=== PATIENT | female | born 1975 | race African-American/Black ===

== ENCOUNTER 2016-10-01 18:59 | Inpatient (IN) | payer OTHER ==
[~2016-10-01] VITALS: Ht 185.4 cm; Wt 109.3 kg
[2016-10-01 19:17] VITALS: BP 181/104
--- NOTE | 2016-10-01 19:55 | NUR ---
PT TAKEN TO BED 1
--- NOTE | 2016-10-01 20:00 | NUR ---
40 Y/O F HERE W/C/O SWELLING TO BILATERAL FEET X 5 DAYS AGO. DENIES ANY CHEST PAIN AT THE MOMENT. ER MD AWARED OF ELEVATED BLOOD PRESSURE. PT STATES HAS A HX OF HTN FOR WHICH SHE TAKES MEDICATION. 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 ER MD AT BEDSIDE.
--- NOTE | 2016-10-01 20:00 | NUR ---
Dr. Osuna evaluating patient at bedside.
[2016-10-01] MEDS ORDERED: ENALAPRILAT 2.5 MG/2 ML VIAL IVP ONE (20:15)
[2016-10-01] MEDS ORDERED: MORPHINE SULFATE 4 MG/ML SYR IVP ONE (20:55)
[2016-10-01] MEDS ORDERED: hydrALAZINE 20 MG/ML VIAL IVP ONE (21:35)
[2016-10-01] MEDS ORDERED: cefTRIAXone 2,000 MG in DEXTROSE 5% 100 ML IV ONE (22:00)
[2016-10-01] MEDS ORDERED: cefTRIAXone 1,000 MG VIAL ONE (22:14)
--- NOTE | 2016-10-01 22:47 | NUR ---
PT RESTING, DENIES ANY DISTRESS. VSS, WILL CONT TO MONITOR.
--- NOTE | 2016-10-01 23:47 | NUR ---
Patient will be admitted to care of . Admited to TELEMETRY. Will go to room 119 B. Belongings list completed. Report to MIRA SHAH.
[2016-10-01] MEDS ORDERED: CATAPRES T0.3 MG/24 TD (23:58)
[2016-10-01] MEDS ORDERED: TRANDATE200 M1 PO (23:58)
[2016-10-01] MEDS ORDERED: PROCARDIA XL90 MG PO (23:58)
--- NOTE | 2016-10-02 00:05 | NUR ---
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 ACCOMPANIED BY KIRSTIE RN, AND NANCY, EMT.
--- NOTE | 2016-10-02 00:20 | NUR ---
ADMITTED THIS 40 YEAR OLD FEMALE FROM ER PER [facility] WITH CC OF SWOLLEN FEET X2 DAYS WITH DX OF UNCONTROLLED HTN, AMBULATED TO BED WITH STEADY GAIT, ASSESSMENT DONE, EDEMA TO LOWER EXT +2, VITAL SIGNS TAKEN, BP SLIGHTLY ELEVATED BUT STABLE, DENIES CHEST PAIN, ORIENTED TO ROOM AND CALL LIGHT, SAFETY MEASURES IN PLACE, CALL LIGHT WITHIN REACH.
[2016-10-02 00:30] VITALS: BP 143/83
[2016-10-02] MEDS ORDERED: ONDANSETRON 4 MG/2 ML VIAL IVP PRN (00:45)
[2016-10-02] MEDS ORDERED: HYDROcodone/APAP 5/325 MG 1 TAB TAB PO PRN (00:45)
[2016-10-02] MEDS ORDERED: ACETAMINOPHEN 325 MG TAB PO PRN (00:45)
[2016-10-02] MEDS ORDERED: MORPHINE SULFATE 4 MG/ML SYR IVP PRN (00:45)
[2016-10-02] MEDS ORDERED: hydrALAZINE 20 MG/ML VIAL IVP PRN (00:45)
--- NOTE | 2016-10-02 01:20 | NUR ---
PT COMPLAINING OF RT LEG/CALF INTERMITTENT CRAMPING, PAGED DR HERRERA AND SAID JUST GIVE MORPHINE, PT MADE AWARE, VERBALIZED UNDERSTANDING, MEDICATED PRN WITH MORPHINE, ALL NEEDS ATTENDED.
--- NOTE | 2016-10-02 02:30 | NUR ---
ROUNDED ON PT, SLEEPING, NO SIGNS OF DISTRESS, MONITORED CLOSELY.
[2016-10-02 04:00] VITALS: BP 121/68
--- NOTE | 2016-10-02 04:00 | NUR ---
PT SLEEPING, EASILY AROUSABLE, VITAL SIGNS STABLE, DENIES ANY PAIN, MONITORED CLOSELY.
--- NOTE | 2016-10-02 05:44 | NUR ---
ROUNDED ON PT, AWAKE USING HER CELLPHONE, DENIES ANY PAIN, WARM BLANKET PROVIDED PER REQUEST, MONITORED CLOSELY.
--- NOTE | 2016-10-02 07:30 | NUR ---
PT SLEEPING, NO SIGNS OF DISTRESS, REPORT GIVEN TO MIRA CRAFT FOR CONTINUITY OF CARE.
--- NOTE | 2016-10-02 07:31 | NUR ---
RECEIVED REPORT FROM POLICY OFFICER NURSE. PT IS AAOX4, PT DENIES PAIN/DISCOMFORT AT THIS TIME. IV IS PATENT AND INTACT. SKIN IS DRY AND INTACT. PT IS ON ROOM AIR, VITALS STABLE. CALL LIGHT WITHIN REACH. WILL CONTINUE TO MONITOR.
[2016-10-02 08:00] VITALS: BP 130/77
[2016-10-02] MEDS: ENOXAPARIN 30 MG/0.3 ML SYR SUBQ SCH ×2 (08:32→09:00)
--- NOTE | 2016-10-02 08:35 | NUR ---
PT TIFFANY MEDS WELL, REFUSED LOVENOX. DISCUSSED PROS AND CONS.
[2016-10-02] MEDS ORDERED: NIFEdipine 90 MG TABER PO SCH (09:00)
[2016-10-02] MEDS ORDERED: LABETALOL 200 MG TAB PO SCH (09:00)
--- NOTE | 2016-10-02 09:15 | NUR ---
PATIENT HAS BEEN SCREENED AND CATEGORIZED MODERATE NUTRITION RISK. PATIENT WILL BE SEEN WITHIN 3-5 DAYS OF ADMISSION. 10/04/16-10/06/[address]
--- NOTE | 2016-10-02 10:02 | NUR ---
ORDERS RECEIVED, PER DR. MARTÍNEZ.
--- NOTE | 2016-10-02 10:29 | NUR ---
ENDORSED TO MIRA MARKS IN STABLE CONDITION.
--- NOTE | 2016-10-02 10:30 | NUR ---
RECEIVED PT AWAKE LYING ON BED TALKING ON HER PHONE, AAOX4 NO S/S OF DISTRESS, WITH IV ACCESS ON LEFT AC 22G ON SALINE LOCK PATENT AND INTACT. SKIN IS INTACT. DISCUSSED PLAN OF CARE, PT VERBALIZED UNDERSTANDING. CALL LIGHT WITHIN REACH, WILL CONTINUE TO MONITOR.
[2016-10-02 12:00] VITALS: BP 148/89
--- NOTE | 2016-10-02 12:30 | NUR ---
LUNCH SERVED, PT HAS FAIR APPETITE ALL NEEDS MET, WILL CONTINUE TO MONITOR.
--- NOTE | 2016-10-02 13:16 | NUR ---
CM NOTE INITIAL REVIEW SENT TO [facility] FAX# [phone] PH# [phone] [phone]
--- NOTE | 2016-10-02 14:51 | NUR ---
PT AWAKE WATCHING TV. ALL NEEDS MET AT THIS TIME. CALL LIGHT WITHIN REACH, WILL CONTINUE TO MONITOR.
--- NOTE | 2016-10-02 15:31 | NUR ---
DISCHARGE PRESCRIPTIONS AND INSTRUCTIONS GIVEN, PT VERBALIZED UNDERSTANDING. ID WRISTBAND, TELE AND IV ACCESS REMOVED, CATHETER TIP INTACT. PT LEFT UNIT AMBULATING IN STABLE CONDITION
[2016-10-04] MEDS ORDERED: cloNIDine-TTS3 0.3 MG/24 HR 1 EA PATCH TD SCH (09:00)
== END 2016-10-02 15:31 | disposition home or self-care (01) | DRG 199 ==
LOC: MED 18:59 → MTU 23:39
PROVIDERS: ADMIT Hospitalist; ATTEND Hospitalist
DX: I10 Essential (primary) hypertension (principal); N39.0 Urinary tract infection, site not specified; D30.02 Benign neoplasm of left kidney; N85.8 Other specified noninflammatory disorders of uterus; E88.09 Other disorders of plasma-protein metabolism, not elsewhere classified; Z82.49 Family history of ischemic heart disease and other diseases of the circulatory system; Z98.890 Other specified postprocedural states; Z88.0 Allergy status to penicillin; Z86.018 Personal history of other benign neoplasm; Z87.59 Personal history of other complications of pregnancy, childbirth and the puerperium

== ENCOUNTER 2023-05-13 14:57 | Emergency (ER) | payer OTHER ==
[~2023-05-13] VITALS: Ht 185.4 cm; Wt 124.3 kg
[~2023-05-13 14:57] MED LIST: NIFE90TE3 PO; TRA200 PO; TTS3 TD
[2023-05-13 15:07] VITALS: BP 175/113; PULSE 73; RESP 18; TEMP 98.3; O2SAT 99
[2023-05-13] MEDS ORDERED: CLIN1GEL2 TP ×2 (15:28→15:39)
[2023-05-13] MEDS ORDERED: CEPH-588 PO ×2 (15:28→15:39)
[2023-05-13 15:40] VITALS: BP 175/113; PULSE 73; RESP 18; TEMP 98.3; O2SAT 99
== END 2023-05-13 15:40 | disposition home or self-care (01) ==
LOC: MED 14:57
DX: L02.412 Cutaneous abscess of left axilla (principal); I10 Essential (primary) hypertension; Z88.0 Allergy status to penicillin; Z79.899 Other long term (current) drug therapy
CPT/HCPCS: 99283